=== PATIENT | female | born 1955 | race African-American/Black ===

== ENCOUNTER → 2017-10-08 | Outpatient (CLI) | payer OTHER ==
[2017-10-09 00:12] LABS: ESTRADIOL LEVEL 54.2 pg/mL (.); PROGESTERONE 5.9 ng/mL (.); TESTOSTERONE TOTAL 10 ng/dL (3-41)
[2017-10-12 04:23] LABS: ESTRONE LEVEL 186 pg/mL (.)
== END | disposition home or self-care (01) ==
LOC: LAB 15:08
DX: N95.1 Menopausal and female climacteric states (principal)
CPT/HCPCS: 36415; 82670; 82679; 84144; 84403

== ENCOUNTER → 2017-11-06 | Outpatient (CLI) | payer OTHER | END | disposition home or self-care (01) | LOC: US 14:29 | DX: D25.9 Leiomyoma of uterus, unspecified (principal); N85.2 Hypertrophy of uterus; N95.0 Postmenopausal bleeding; Z86.018 Personal history of other benign neoplasm | CPT/HCPCS: 76856 ==

== ENCOUNTER 2019-01-16 17:01 | Emergency (ER) | payer MEDICARE, OTHER ==
[~2019-01-16] VITALS: Ht 180.3 cm; Wt 70.3 kg
--- NOTE | 2019-01-16 18:36 | PHYS DOC ---
Past Medical History Past Medical History: No Pertinent History, Other Additional Past Medical Histor: heart murmer (SIERRA YOU APRN) Past Surgical History: Tonsillectomy, Other Additional Past Surgical Histo: laparoscopy (SIERRA YOU APRN) Additional Information: never smoker. Alcohol Use: Occasionally Drug Use: None (SIERRA YOU APRN) Adult General Chief Complaint Chief Complaint: LOWER EXT PAIN HPI HPI Patient is 63-year-old female who presents to the ER after being sent here by her doctor Dr. Edna Mejia for LLE pain. The injury is atraumatic. This pain started last night and the patient rates it a 4 out of 10 in severity. The pain persisted today and that is what made her see her primary care doctor. The pat ient describes the pain as aching and states that it is intermittent and tender on touch. Nothing that the patient has done has made it better or worse. The patient denies any recent long travel and the patient states that she was immobile for the weekend due to fatigue from taking care of her is in a skilled nursing with Parkinson's. The patient denies any history of blood clots or any history of any blood clotting disorders. (SIERRA YOU APRN) Review of Systems Review of Systems Constitutional: Denies fever or chills. Reports fatigue from taking care of her . Reports Night sweats that have improved since being started on a hormone pill. Eyes: Denies change in visual acuity, redness, or eye pain [] HENT: Denies nasal congestion or sore throat [] Respiratory: Denies cough or shortness of breath [] Cardiovascular: Denies Chest Pain, or palpitations. GI: Denies nausea, vomiting, or diarrhea [] : Denies dysuria or hematuria [] Musculoskeletal: Denies back pain or joint pain [] Integument: Denies rash or skin lesions [] Neurologic: Denies headache, or dizziness. [] Complete systems were reviewed and found to be within normal limits, except as documented in this note. (SIERRA YOU APRN) Family History Family History Reports family history of DVT's. (SIERRA YOU APRN) Current Medications Current Medications Reports being on an unknown hormone medication due to night sweats that was started by her PCP recently. Also on several vitamins and minerals. (SIERRA YOU APRN) Allergies Allergies Allergies Coded Allergies Type Severity Reaction Last Updated Verified No Known Drug Allergies 03/20/14 No (SIERRA VALENZUELA DO) Allergies Allergies to Aspirin and Lyrica. (SIERRA YOU APRN) Physical Exam Physical Exam Constitutional: No acute distress, non-toxic appearance. [] HENT: Normocephalic, atraumatic, oropharynx moist, no oral exudates. [] Eyes: PERRLA, conjunctiva normal, no discharge. [] Neck: No stridor, and no tenderness. [] Cardiovascular: Heart rate regular rhythm, no murmur noted on exam [] Lungs & Thorax: Bilateral breath sounds clear to auscultation [] Abdomen: No tenderness, no masses, no pulsatile masses. [] Skin: Warm, dry, no erythema, no rash. Warmness to the LLE compared to the RLE, Erythema to the LLE compared to the Right. Has a collateral superficial vein on the LLE. Extremities: Tenderness on palpation to the LLE, minor edema to the LLE compared to the right RLE. [] Neurologic: Alert and oriented X 3 [] Psychologic: Affect normal, judgement normal, mood normal. [] (SIERRA YOU APRN) Current Patient Data Vital Signs Vital Signs Date Time Temp Pulse Resp B/P (MAP) Pulse Ox O2 Delivery O2 Flow Rate FiO2 01/16/19 20:39 64 16 159/70 (99) 100 Room Air 01/16/19 17:45 98.5 98.5 (SIERRA VALENZUELA DO) EKG EKG [] (SIERRA YOU APRN) Radiology/Procedures Radiology/Procedures [] PATIENT: SINGH REY ACCOUNT: [id number] : 1955 LOCATION: ER AGE: 63 SEX: F EXAM STATUS: REG ER ORD. PHYSICIAN: SIERRA YOU APRN REASON: Acute Pain to LLE PROCEDURE: VENOUS LOWER EXTREMITY LEFT Left Lower Extremity Venous Doppler Ultrasound History: pain Comparison: None Procedure: Color flow, duplex, spectral analysis and 2D images are obtained with and without compression in the area of the common femoral vein, superficial femoral vein - femoral vein junction, main femoral vein (superficial femoral vein) and popliteal vein. Veins of the proximal calf are also imaged. Findings: There is a small segment of clot and one distal PTV. There is normal duplex flow, color flow and compressibility of all remaining visualized vein segments. Impression: Positive small DVT. Electronically signed by: Tee Falcon III, MD (01/16/2019 7:21 PM) [facility] (SIERRA YOU APRN) Course & Med Decision Making Course & Med Decision Making Pertinent Labs and Imaging studies reviewed. (See chart for details) []1800: The patient presents with acute LLE pain and swelling that is atraumatic. The patient has collateral superficial vein in the area of swelling in the LLE. The patient denies sob, palpitations, and is not tachycardic. She has a modified wells criteria score of 2 which places her at moderate risk. I s poke to the patient regarding the plan of care to get an ultrasound and rule out a DVT. The patient was agreeable to this and states that Dr. Mejia had mentioned that she needed an Ultrasound. 20:00: The patient ultrasound came back with a small DVT. Will place patient on Anticoagulant and have her follow up with Dr. Mejia (PCP). Patient is agreeable to this. Placed call to [facility], Dr. Mejia was not available but talked to his nurse who stated she would let him know and to have her follow up on Sunday. Discussed with patients risks of bleeding and to come to hospital if she falls or has increased symptoms such as SOB or chest pain. (SIERRA YOU APRN) Dragon Disclaimer Dragon Disclaimer This electronic medical record was generated, in whole or in part, using a voice recognition dictation system. (SIERRA YOU APRN) Departure Departure Impression: Primary Impression: Deep vein thrombosis (DVT) Disposition: HOME, SELF-CARE Condition: STABLE Referrals: EDNA MURRELL DO (PCP) Patient Instructions: Deep Vein Thrombosis Additional Instructions: Please take your medication and come back to ER if symptoms get worse or you develop SOB, Dizziness, or CP. Follow up with Dr. Mejia on Sunday. 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 I was available for consultation as needed at all times during the patient's visit in the emergency department. I agree with the clinical impression, plan and disposition. (SIERRA VALENZUELA DO) SIERRA YOU APRN Jan 16, 2019 18:36 SIERRA VALENZUELA DO Jan 18, 2019 21:42
--- NOTE | 2019-01-16 19:24 | RAD ---
Left Lower Extremity Venous Doppler Ultrasound History: pain Comparison: None Procedure: Color flow, duplex, spectral analysis and 2D images are obtained with and without compression in the area of the common femoral vein, superficial femoral vein - femoral vein junction, main femoral vein (superficial femoral vein) and popliteal vein. Veins of the proximal calf are also imaged. Findings: There is a small segment of clot and one distal PTV. There is normal duplex flow, color flow and compressibility of all remaining visualized vein segments. Impression: Positive small DVT. Electronically signed by: Tee Falcon III, MD (01/16/2019 7:21 PM) [facility]
[2019-01-16] MEDS ORDERED: APIX2.5T PO (20:09)
[2019-01-16 20:39] VITALS: BP 159/70
== END 2019-01-16 20:39 | disposition home or self-care (01) ==
LOC: ER 17:01
DX: I82.492 Acute embolism and thrombosis of other specified deep vein of left lower extremity (principal)
CPT/HCPCS: 93971; 99284-25

== ENCOUNTER 2019-01-18 23:45 | Emergency (ER) | payer MEDICARE, OTHER ==
[~2019-01-18] VITALS: Ht 180.3 cm; Wt 70.3 kg
[~2019-01-18 23:45] MED LIST: APIX2.5T PO
[2019-01-18 23:53] VITALS: BP 133/56
[2019-01-19 00:09] LABS: BASO # 0.1 x10^3/uL (0.0-0.2); BASO % 1 % (0-3); EOS # 0.4 x10^3/uL (0.0-0.7); EOS % 8 % (0-3); HEMATOCRIT 40.8 % (36.0-47.0); HEMOGLOBIN 13.6 g/dL (12.0-15.5); LYMPH # 1.9 x10^3/uL (1.0-4.8); LYMPH % 34 % (24-48); MEAN CORPUSCULAR HEMOGLOBIN 32 pg (25-35); MEAN CORPUSCULAR HGB CONC 33 g/dL (31-37); MEAN CORPUSCULAR VOLUME 97 fL (79-100); MONO # 0.8 x10^3/uL (0.0-1.1); MONO % 13 % (0-9); NEUT # 2.5 x10^3uL (1.8-7.7); NEUT % 44 % (31-73); PLATELET COUNT 238 x10^3/uL (140-400); RED BLOOD COUNT 4.21 x10^6/uL (3.50-5.40); RED CELL DISTRIBUTION WIDTH 13.6 % (11.5-14.5); WHITE BLOOD COUNT 5.6 x10^3/uL (4.0-11.0)
[2019-01-19] MEDS ORDERED: RIVA15TA PO (00:12)
[2019-01-19 00:19] LABS: CALCIUM 9.3 mg/dL (8.5-10.1); CREATININE 0.8 mg/dL (0.6-1.0); GFR 87.1; POTASSIUM 3.9 mmol/L (3.5-5.1)
[2019-01-19 00:27] LABS: ALBUMIN 3.7 g/dL (3.4-5.0); ALBUMIN/GLOBULIN RATIO 1.2 (1.0-1.7); TOTAL BILIRUBIN 0.2 mg/dL (0.2-1.0); TOTAL PROTEIN 6.9 g/dL (6.4-8.2)
--- NOTE | 2019-01-19 00:31 | PHYS DOC ---
Past Medical History Past Medical History: No Pertinent History, DVT, Other Additional Past Medical Histor: heart murmer Past Surgical History: Tonsillectomy, Other Additional Past Surgical Histo: laparoscopy Alcohol Use: Occasionally Drug Use: None Adult General Chief Complaint Chief Complaint: SHORTNESS OF BREATH HPI HPI Patient is a 63 year old female with history of recently diagnosed DVT currently on Xarelto who presents with intermittent shortness of breath times s everal months. Patient reports dyspnea primarily at night when lying down. Reports shortness breath on-and-off throughout today. Denies chest pain, chest tightness. No fever, cough, sore throat. Denies increased leg pain and swelling. Patient is compliant with therapy. Denies history of chronic lung disease. No history of CAD, CHF although her disease. No other acute symptoms or complaints. [] Review of Systems Review of Systems Review symptoms as per history of present illness. All other review symptoms are negative All other systems were reviewed and found to be within normal limits, except as documented in this note. Current Medications Current Medications Current Medications Medications (Trade) Dose Ordered Sig/Bryce Start Time Stop Time Status Last Admin Dose Admin Furosemide (Lasix) 20 mg DAILY 01/19/19 01:00 01/19/19 00:49 20 MG Allergies Allergies Allergies Coded Allergies Type Severity Reaction Last Updated Verified No Known Drug Allergies 03/20/14 No Physical Exam Physical Exam Constitutional: Well developed, well nourished, no acute distress, non-toxic appearance. [] HENT: Normocephalic, atraumatic, bilateral external ears normal, oropharynx moist, no oral exudates, nose normal. [] Eyes: PERRLA, EOMI, conjunctiva normal, no discharge. [] Neck: Normal range of motion. [] Cardiovascular:Heart rate regular rhythm, no murmur [] Lungs & Thorax: Respirations nonlabored, coarse rales in bilateral lung smart[] Abdomen: Bowel sounds normal, soft, no tenderness. [] Skin: Warm, dry, no erythema, no rash. [] Back: No tenderness. [] Extremities: No tenderness, left leg pain tenderness.. [] Neurologic: Alert and oriented X 3, normal motor function, normal sensory function, no focal deficits noted. [] Psychologic: Affect normal, judgement normal, mood normal. [] Current Patient Data Vital Signs Vital Signs Date Time Temp Pulse Resp B/P (MAP) Pulse Ox O2 Delivery O2 Flow Rate FiO2 01/19/19 00:33 66 114/52 (72) 100 01/18/19 23:53 98.0 20 Room Air 98.0 Lab Values Laboratory Tests Test 01/18/19 23:59 White Blood Count 5.6 x10^3/uL (4.0-11.0) Red Blood Count 4.21 x10^6/uL (3.50-5.40) Hemoglobin 13.6 g/dL (12.0-15.5) Hematocrit 40.8 % (36.0-47.0) Mean Corpuscular Volume 97 fL (79-100) Mean Corpuscular Hemoglobin 32 pg (25-35) Mean Corpuscular Hemoglobin Concent 33 g/dL (31-37) Red Cell Distribution Width 13.6 % (11.5-14.5) Platelet Count 238 x10^3/uL (140-400) Neutrophils (%) (Auto) 44 % (31-73) Lymphocytes (%) (Auto) 34 % (24-48) Monocytes (%) (Auto) 13 % (0-9) H Eosinophils (%) (Auto) 8 % (0-3) H Basophils (%) (Auto) 1 % (0-3) Neutrophils # (Auto) 2.5 x10^3uL (1.8-7.7) Lymphocytes # (Auto) 1.9 x10^3/uL (1.0-4.8) Monocytes # (Auto) 0.8 x10^3/uL (0.0-1.1) Eosinophils # (Auto) 0.4 x10^3/uL (0.0-0.7) Basophils # (Auto) 0.1 x10^3/uL (0.0-0.2) Sodium Level 137 mmol/L (136-145) Potassium Level 3.9 mmol/L (3.5-5.1) Chloride Level 100 mmol/L (98-107) Carbon Dioxide Level 27 mmol/L (21-32) Anion Gap 10 (6-14) Blood Urea Nitrogen 14 mg/dL (7-20) Creatinine 0.8 mg/dL (0.6-1.0) Estimated GFR (Cockcroft-Gault) 87.1 BUN/Creatinine Ratio 18 (6-20) Glucose Level 96 mg/dL (70-99) Calcium Level 9.3 mg/dL (8.5-10.1) Total Bilirubin 0.2 mg/dL (0.2-1.0) Aspartate Amino Transferase (AST) 14 U/L (15-37) L Alanine Aminotransferase (ALT) 20 U/L (14-59) Alkaline Phosphatase 60 U/L (46-116) Troponin I Quantitative < 0.017 ng/mL (0.000-0.055) PO-Nnq-M-Type Natriuretic Peptide 211 pg/mL (0-124) H Total Protein 6.9 g/dL (6.4-8.2) Albumin 3.7 g/dL (3.4-5.0) Albumin/Globulin Ratio 1.2 (1.0-1.7) Laboratory Tests 01/18/19 23:59 Laboratory Tests 01/18/19 23:59 EKG EKG [EKG: Normal sinus rhythm, no acute ST-T wave changes, QTC 432.] Radiology/Procedures Radiology/Procedures [Chest x-ray: Increased interstitial markings Course & Med Decision Making Course & Med Decision Making Pertinent Labs and Imaging studies reviewed. (See chart for details) [History, exam concerning for pulmonary Vascular congestion. No chest pain. Patient's not hypoxic or short of breath and seated upright. IV Lasix given with clinical improvement. Symptoms are ongoing for the past several months. Patient will prescribe short course of diuretics with PCP f/u as scheduled tomorrow. Dragon Disclaimer Dragon Disclaimer This electronic medical record was generated, in whole or in part, using a voice recognition dictation system. Departure Departure Impression: Primary Impression: Dyspnea Additional Impression: Pulmonary vascular congestion Disposition: HOME, SELF-CARE Condition: IMPROVED Referrals: EDNA MURRELL DO (PCP) Additional Instructions: You were evaluated in the emergency department for shortness of breath. EKG, lab and imaging studies were performed and are suggestive of pulmonary vascular congestion. Please decrease salt intake and limit fluids to less than 2 L daily. Take water pill for the next 2 days and follow-up with your PCP on Sunday as scheduled. In the meantime, if you develop new or worsening symptoms, return to the ED. Scripts Furosemide (LASIX) 20 Mg Tablet 1 TAB PO DAILY, #2 TAB 1 Refill Prov: ADELE ORTIZ DO 01/19/19 Problem Qualifiers ADELE ORTIZ DO Jan 19, 2019 00:31
--- NOTE | 2019-01-19 00:37 | RAD ---
Indication:SHORT OF AIR. TECHNIQUE:Portable AP chest X-ray COMPARISON:None FINDINGS: Heart is normal in size. Diffuse bilateral interstitial opacities are seen. No focal consolidation. No pneumothorax or pleural effusion. Visualized bony thorax is within normal limits. IMPRESSION: Findings of bronchitis/atypical/viral infection. Electronically signed by: Torres Arreguin DO (01/19/2019 12:34 AM) [facility]
[2019-01-19] MEDS ORDERED: FUROSEMIDE 20 MG/2 ML VIAL. IVP SCH (01:00)
[2019-01-19] MEDS ORDERED: FURO-69 PO (01:24)
--- NOTE | 2019-01-19 08:38 | EKG ---
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
== END 2019-01-19 03:33 | disposition home or self-care (01) ==
LOC: ER 23:45
DX: R06.02 Shortness of breath (principal); R09.89 Other specified symptoms and signs involving the circulatory and respiratory systems
CPT/HCPCS: 36415; 71045; 80053; 83880; 84484; 85025; 93005; 96374; 99285; J1940

== ENCOUNTER 2019-02-27 16:52 | Emergency (ER) | payer MEDICARE, OTHER ==
[~2019-02-27] VITALS: Ht 180.3 cm; Wt 70.3 kg
[~2019-02-27 16:52] MED LIST changes: +FURO-69 PO; +RIVA15TA PO
--- NOTE | 2019-02-27 17:33 | PHYS DOC ---
Past Medical History Past Medical History: No Pertinent History, DVT, Other Additional Past Medical Histor: heart murmer Past Surgical History: Tonsillectomy, Other Additional Past Surgical Histo: laparoscopy Alcohol Use: Occasionally Drug Use: None Adult General Chief Complaint Chief Complaint: LOWER EXT PAIN [facility] HPI Patient is a 63 year old who presents with left lower leg and ankle swelling. The extremity started having pain and swelling last night. The patient was seen in the ER month ago for a DVT in the leg. The patient currently takes Xarelto. Patient has been worked up for this by her primary care doctor the factor VII blood work is pending, and her S protein was low. His her pain currently 0 out of 10. Review of Systems Review of Systems Constitutional: Denies fever or chills [] Eyes: Denies change in visual acuity, redness, or eye pain [] HENT: Denies nasal congestion or sore throat [] Respiratory: Denies cough or shortness of breath [] Cardiovascular: No additional information not addressed in HPI [] GI: Denies abdominal pain, nausea, vomiting, bloody stools or diarrhea [] : Denies dysuria or hematuria [] Musculoskeletal: Denies back pain or joint pain with exception of L leg pain and edema. Integument: Denies rash or skin lesions [] Neurologic: Denies headache, focal weakness or sensory changes [] Endocrine: Denies polyuria or polydipsia [] Complete systems were reviewed and found to be within normal limits, except as documented in this note. Allergies Allergies Allergies Coded Allergies Type Severity Reaction Last Updated Verified No Known Drug Allergies 03/20/14 No Physical Exam Physical Exam Constitutional: Well developed, well nourished, no acute distress, non-toxic appearance. [] HENT: Normocephalic, atraumatic, bilateral external ears normal, oropharynx moist, no oral exudates, nose normal. [] Eyes: PERRLA, EOMI, conjunctiva normal, no discharge. [] Neck: Normal range of motion, no tenderness, supple, no stridor. [] Cardiovascular:Heart rate regular rhythm, no murmur [] Lungs & Thorax: Bilateral breath sounds clear to auscultation [] Abdomen: Bowel sounds normal, soft, no tenderness, no masses, no pulsatile masses. [] Skin: Warm, dry, no erythema, no rash. [] Back: No tenderness, no CVA tenderness. [] Extremities: No tenderness with exception of L lower extremity, no cyanosis, no clubbing, ROM intact, Edema to L lower extremity compared to R. Neurologic: Alert and oriented X 3, normal motor function, normal sensory function, no focal deficits noted. [] Psychologic: Affect normal, judgement normal, mood normal. [] Current Patient Data Vital Signs Vital Signs Date Time Temp Pulse Resp B/P (MAP) Pulse Ox O2 Delivery O2 Flow Rate FiO2 02/27/19 17:20 98.1 67 18 152/69 (96) 94 Room Air 98.1 EKG EKG [] Radiology/Procedures Radiology/Procedures []PATIENT: ROQUE REYCOUNT: [id number]#: [id number] : 1955 LOCATION: ER AGE: 63 SEX: F EXAM STATUS: REG ER ORD. PHYSICIAN: SIERRA YOU APRN REASON: pain, swelling PROCEDURE: VENOUS LOWER EXTREMITY LEFT EXAM: Left lower extremity venous Doppler sonogram. HISTORY: Pain and swelling. TECHNIQUE: James scale and color Doppler sonographic evaluation of the left lower extremity veins with spectral waveform analysis was performed. FINDINGS: There is normal color flow, normal compressibility and there are normal spectral waveforms in the common femoral, superficial femoral, popliteal, posterior tibial and greater saphenous veins. IMPRESSION: No Doppler evidence of lower extremity deep venous thrombosis. Electronically signed by: Dena Madrigal MD (02/27/2019 6:48 PM) [facility] Course & Med Decision Making Course & Med Decision Making Pertinent Labs and Imaging studies reviewed. (See chart for details) Patient wants an ultrasound of L lower extremity. Will get imaging. Dragon Disclaimer Dragon Disclaimer This electronic medical record was generated, in whole or in part, using a voice recognition dictation system. Departure Departure Impression: Primary Impression: Leg pain Disposition: 01 HOME, SELF-CARE Condition: STABLE Referrals: EDNA MURRELL DO (PCP) Additional Instructions: Follow up with your primary care doctor. Return to ED as needed. Problem Qualifiers Primary Impression: Leg pain Laterality: left Qualified Codes: M79.605 - Pain in left leg SIERRA YOU APRN Feb 27, 2019 17:33
[2019-02-27 18:51] VITALS: BP 113/56
--- NOTE | 2019-02-27 18:51 | RAD ---
EXAM: Left lower extremity venous Doppler sonogram. HISTORY: Pain and swelling. TECHNIQUE: James scale and color Doppler sonographic evaluation of the left lower extremity veins with spectral waveform analysis was performed. FINDINGS: There is normal color flow, normal compressibility and there are normal spectral waveforms in the common femoral, superficial femoral, popliteal, posterior tibial and greater saphenous veins. IMPRESSION: No Doppler evidence of lower extremity deep venous thrombosis. Electronically signed by: Dena Madrigal MD (02/27/2019 6:48 PM) [facility]
== END 2019-02-27 19:05 | disposition home or self-care (01) ==
LOC: ER 16:52
DX: M79.605 Pain in left leg (principal); R60.0 Localized edema; Z86.718 Personal history of other venous thrombosis and embolism
CPT/HCPCS: 93971; 99284-25

== ENCOUNTER → 2019-03-14 | Outpatient (CLI) | payer MEDICARE, OTHER ==
[2019-02-27 18:51] VITALS: BP 113/56
[~2019-03-14] MED LIST changes: +REGADENOSON 0.4 MG/5 ML DISP.SYRIN. IV ONE
--- NOTE | 2019-03-14 12:50 | RAD ---
MR#: [id number] Date of Study: 03/14/2019 Ordering Physician: LINDA LOCKHART, Referring Physician: MARTHA KNUTSON Tech: MINI Bob, ARRT (R) (N) APPROVED REPORT Test Type: Pharmacological Stress Nurse/Tech: Lauren Galvin R.N. Test Indications: SOB Cardiac History: DVT Medications: Zocor Medical History: See Electronic Medical Record Resting ECG: s hany Resting Heart Rate: 56 bpm Resting Blood Pressure: 121/52mmHg Pretest Chest Pain: No chest pain Nurse/Tech Notes S1S2. lungs sound clear Consent: The procedure was explained to the patient in lay terms. Informed consent was witnessed. Hero eout was entered into Biletu. History and Stress Test performed by Lauren Galvin R.N. Pharm. Details Pharmacologic stress testing was performed using 0.4mg per 5ml of regadenoson given intravenously ove r 7-10 seconds. Stress Symptoms DizzinessDyspnea POST EXERCISE Reason for Termination: Infusion complete Target HR: 130 Max HR: 109 bpm Max Blood Pressure: 108/42mmHg Blood Pressure response to exercise: Normal blood pressure response during stress. Chest Pain: No. Arrhythmia: No. ST Change: No. INTERPRETATION Stress EKG Conclusion: Baseline EKG showed sinus rhythm. No ischemic changes at peak stress. No arr hythmias. Imaging Protocol IMAGE PROTOCOL: Rest Tc-99m/stress Tc-99m 1 day Rest: Stress: Viability: Radiopharm.Tc99m AcfjlfsmpFo28t Sestamibi Dose10.8mCi 32.3mCi Img Date 03/14/2019 03/14/2019 Inj-Img [id number]. 60min. Rest Admin Site:IV - Right AntecubitalAdministrator:RT Hitesh (R)(N) Stress Admin Site: IV - Right AntecubitalAdministrator: RT Hitesh (R)(N) STRESS DATA End Diast. Vol.63.0mlLVEDV index BSA33.0ml End Syst. Vol.4.0mlLVESV index BSA2.0ml Myocardial Clfn982.0gEject. Itmedxfz91.0% Stress Scores Regional WT0.00Summed WT0.00 Regional WM0.00Summed WM0.00 Study quality was good. Left Ventricular size was Normal at Rest and Stress. Lung uptake was . Left Ventricular ejection fraction is >80%. The rest and stress images show normal perfusion, normal contraction and thickening. LV Perf. Quant 17 Seg. SSS0.00 17 Seg. SRS0.00 17 Seg. SDS0.00 Stress Defect Extent (% LAD)0.00Rest Defect Extent (% LAD)0.00Rev. Defect Extent (% LAD)0.00 Stress Defect Extent (% LCX) 0.00Rest Defect Extent (% LCX)0.00Rev. Defect Extent (% LCX)0.00 Stress Defect Extent (% RCA)0.00Rest Defect Extent (% RCA)0.00Rev. Defect Extent (% RCA)0.00 Stress Defect Extent (% STANTON)0.00Rest Defect Extent (% STANTON)0.00Rev. Defect Extent (% STANTON)0.00 Conclusion 1. Regadenoson cardioisotope stress test did not show any evidence of ischemia or infarct. 2. Normal left ventricular systolic function with ejection fraction calculated at >80%. 3. Low risk for cardiac events. Signed by : Linda Lockhart, Electronically Approved : 03/14/2019 12:49:56
== END | disposition home or self-care (01) ==
LOC: NM 08:13
PROVIDERS: ATTEND Internal Medicine Cardiovascular Disease
DX: I50.32 Chronic diastolic (congestive) heart failure (principal); I25.10 Atherosclerotic heart disease of native coronary artery without angina pectoris; Z79.01 Long term (current) use of anticoagulants
CPT/HCPCS: 78452; 93017; A9500; J2785

== ENCOUNTER → 2019-04-14 | Outpatient (CLI) | payer MEDICARE, OTHER ==
[~2019-04-14] MED LIST changes: -REGADENOSON 0.4 MG/5 ML DISP.SYRIN. IV ONE
--- NOTE | 2019-04-14 12:47 | RAD ---
MR#: [id number] Date of Study: 04/14/2019 Ordering Physician: LINDA LOCKHART, Referring Physician: LINDA LOCKHART, Tech: CARMEN Biggs, RDMS, RTR APPROVED REPORT Patient Location : OUT-PATIENT Indications Lower Extremity Edema : History of DVT Past History Compression Stockings : Yes Medications xerelto Findings Grayscale images of the bilateral greater and lesser saphenous veins do not show any obvious evidence of thrombus. The right great saphenous vein measures 5.6 mm and the left great saphenous vein measures 9.2 mm and these veins do not show any obvious evidence of reflux. The bilateral lesser saphenous veins also do not show any evidence of reflux. Critical Notification Critical Value: No <Conclusion> No significant reflux in the bilateral greater and lesser saphenous veins Signed by : Moises Hensley, Electronically Approved : 04/14/2019 12:46:36
--- NOTE | 2019-04-14 16:33 | CARD ---
MR#: [id number] Date of Study: 04/14/2019 Ordering Physician: LINDA LOCKHART, Referring Physician: LINDA LOCKHART, Tech: Margy Valdivia APPROVED REPORT EXAM: Two-dimensional and M-mode echocardiogram with Doppler and color Doppler. Other Information Quality : GoodHR: 59bpm Rhythm : NSR INDICATION Dyspnea Congestive Heart Failure 2D DIMENSIONS RVDd3.0 (2.9-3.5cm)Left Atrium(2D)2.9 (1.6-4.0cm) IVSd0.7 (0.7-1.1cm)Aortic Root(2D)2.7 (2.0-3.7cm) LVDd4.3 (3.9-5.9cm)LVOT Diameter1.9 (1.8-2.4cm) PWd0.8 (0.7-1.1cm)LVDs2.5 (2.5-4.0cm) FS (%) 42.8 %SV62.0 ml Aortic Valve AoV Peak Wyatt.149.4cm/sAoV VTI33.7cm AO Peak GR.8.9mmHgLVOT Peak Wyatt.131.0cm/s LVOT VTI 31.01cmAO Mean GR.5mmHg JESU (VMAX)1.91xb2DDV (VTI)2.51cm2 Mitral Valve MV E Dmszzjft79.8cm/sMV DECEL CCTG500ch MV A Omkwhyjl53.4cm/sMV PVM29uu E/A Ratio1.3MVA (PHT)3.43cm2 TDI E/Lateral E'6.5E/Medial E'7.9 Pulmonary Valve PV Peak Vkmcxyqq84.3cm/sPV Peak Grad.4mmHg Tricuspid Valve TR P. Wcywvnvn410cm/sRAP [id number] TR Peak Gr.53kdImNLTK11jeJk Pulmonary Vein S1 Zomdvifn90.1cm/sD2 Kgbjltby34.6cm/s PVa isvfhbtk723toxf LEFT VENTRICLE The left ventricle is normal size. There is borderline concentric left ventricular hypertrophy. The l eft ventricular systolic function is normal and the ejection fraction is within normal range. The Eje ction Fraction is 60-65%. There is normal LV segmental wall motion. The left ventricular diastolic fu nction and filling is normal for age. RIGHT VENTRICLE The right ventricle is normal size. There is normal right ventricular wall thickness. The right ventr icular systolic function is normal. ATRIA The left atrium size is normal. The right atrium size is normal. The interatrial septum is intact wit h no evidence for an atrial septal defect or patent foramen ovale as noted on 2-D or Doppler imaging. AORTIC VALVE The aortic valve is thickened but opens well. Doppler and Color Flow revealed no significant aortic r egurgitation. There is no significant aortic valvular stenosis. MITRAL VALVE The mitral valve is thickened but opens well. There is no evidence of mitral valve prolapse. There is no mitral valve stenosis. Doppler and Color-flow revealed trace mitral regurgitation. TRICUSPID VALVE The tricuspid valve is normal in structure and function. Doppler and Color Flow revealed mild tricusp id regurgitation with an estimated PAP of 36 mmHg. There is no tricuspid valve stenosis. PULMONIC VALVE The pulmonic valve is not well visualized. Doppler and Color Flow revealed no pulmonic valvular regur gitation. GREAT VESSELS The aortic root is normal in size. The IVC is dilated and collapses <50% with inspiration. PERICARDIAL EFFUSION There is no evidence of significant pericardial effusion. Critical Notification Critical Value: No <Conclusion> The left ventricle is normal size. The left ventricular systolic function is normal and the ejection fraction is within normal range. The Ejection Fraction is 60-65%. There is borderline concentric left ventricular hypertrophy. There is no significant aortic valvular stenosis. Doppler and Color Flow revealed no significant aortic regurgitation. Doppler and Color-flow revealed trace mitral regurgitation. Doppler and Color Flow revealed mild tricuspid regurgitation with an estimated PAP of 36 mmHg. Signed by : Hong Bill MD Electronically Approved : 04/14/2019 16:32:18
== END | disposition home or self-care (01) ==
LOC: US 09:23
PROVIDERS: ATTEND Internal Medicine Cardiovascular Disease
DX: I07.1 Rheumatic tricuspid insufficiency (principal); I50.32 Chronic diastolic (congestive) heart failure
CPT/HCPCS: 93306; 93970

== ENCOUNTER → 2019-07-03 | Outpatient (CLI) | payer MEDICARE, OTHER ==
--- NOTE | 2019-07-03 14:14 | RAD ---
EXAM: Left lower extremity venous Doppler sonogram. HISTORY: Pain and swelling. TECHNIQUE: James scale and color Doppler sonographic evaluation of the left lower extremity veins with spectral waveform analysis was performed. FINDINGS: There is normal color flow, normal compressibility and there are normal spectral waveforms in the common femoral, superficial femoral, popliteal, posterior tibial and greater saphenous veins. IMPRESSION: No Doppler evidence of lower extremity deep venous thrombosis. Electronically signed by: Dena Madrigal MD (07/03/2019 2:11 PM) [place] [id number]
== END | disposition home or self-care (01) ==
LOC: US 13:31
PROVIDERS: ATTEND General Practice
DX: R60.0 Localized edema (principal); Z86.718 Personal history of other venous thrombosis and embolism
CPT/HCPCS: 93971

== ENCOUNTER → 2021-04-21 | Outpatient (CLI) | payer MEDICARE, OTHER ==
--- NOTE | 2021-04-21 17:37 | CARD ---
MR#: [id number] Date of Study: 04/21/2021 Ordering Physician: LINDA LOCKHART, Referring Physician: Alexandro KNUTSON: Tee Partida [facility] APPROVED REPORT EXAM: Two-dimensional and M-mode echocardiogram with Doppler and color Doppler. Other Information Quality : AverageGoodHR: 60bpm Rhythm : NSR INDICATION Congestive Heart Failure 2D DIMENSIONS Left Atrium(2D)3.2 (1.6-4.0cm)IVSd0.7 (0.7-1.1cm) Aortic Root(2D)3.0 (2.0-3.7cm)LVDd3.9 (3.9-5.9cm) LVOT Diameter1.7 (1.8-2.4cm)PWd0.7 (0.7-1.1cm) LVDs2.3 (2.5-4.0cm)FS (%) 40.1 % SV46.0 ml Aortic Valve AoV Peak Wyatt.143.1cm/sAoV VTI34.9cm AO Peak GR.8.2mmHgLVOT Peak Wyatt.124.5cm/s AO Mean GR.4mmHgAVA (VMAX)1.95cm2 Mitral Valve MV E Ncucyuvd848.6cm/sMV E Peak Gr.4mmHg MV DECEL [id number] A Xmruvvav43.2cm/s MV E Mean Gr.1mmHgE/A Ratio1.2 Pulmonary Valve PV Peak Mkvrjsvh05.2cm/s Tricuspid Valve TR P. Zmvjgkvi536dc/sTR Peak Gr.23mmHg Pulmonary Vein S1 Xlgivvqs35.2cm/sD2 Ruptyxvx46.2cm/s LEFT VENTRICLE The left ventricle is normal size. There is normal left ventricular wall thickness. The left ventricu lar systolic function is normal and the ejection fraction is within normal range. Left ventricular ej ection fraction is 55 to 60%. There is normal LV segmental wall motion. The left ventricular diastoli c function and filling is normal for age. No left ventricle thrombus noted on this study. There is no ventricular septal defect visualized. There is no left ventricular aneurysm. There is no mass noted in the left ventricle. RIGHT VENTRICLE The right ventricle is normal size. There is normal right ventricular wall thickness. The right ventr icular systolic function is normal. ATRIA The left atrium size is normal. The right atrium size is normal. AORTIC VALVE The aortic valve is normal in structure and function. Doppler and Color Flow revealed no significant aortic regurgitation. There is no significant aortic valvular stenosis. There is no aortic valvular v egetation. MITRAL VALVE The mitral valve is normal in structure and function. There is no evidence of mitral valve prolapse. There is no mitral valve stenosis. Doppler and Color-flow revealed trace to mild mitral regurgitation . TRICUSPID VALVE The tricuspid valve is normal in structure and function. Doppler and Color Flow revealed mild tricusp id regurgitation. There is no tricuspid valve prolapse or vegetation. There is no tricuspid valve lizz nosis. PULMONIC VALVE The pulmonary valve is normal in structure and function. Doppler and Color Flow revealed no pulmonic valvular regurgitation. There is no pulmonic valvular stenosis. GREAT VESSELS The aortic root is normal in size. The ascending aorta is normal in size. The pulmonary artery is nor mal. The IVC is mildly enlarged but collapeses normal with inspiration. PERICARDIAL EFFUSION There is no pleural effusion. There is no evidence of significant pericardial effusion. Critical Notification Critical Value: No <Conclusion> The left ventricle is normal size. The left ventricular systolic function is normal and the ejection fraction is within normal range. Left ventricular ejection fraction is 55 to 60%. Doppler and Color Flow revealed no significant aortic regurgitation. There is no significant aortic valvular stenosis. Doppler and Color-flow revealed trace to mild mitral regurgitation. Doppler and Color Flow revealed mild tricuspid regurgitation. Signed by : Hong Bill MD Electronically Approved : 04/21/2021 17:36:55
== END ==
LOC: ECHO 11:03
PROVIDERS: ATTEND Internal Medicine Cardiovascular Disease
DX: I08.1 Rheumatic disorders of both mitral and tricuspid valves (principal); I50.32 Chronic diastolic (congestive) heart failure
CPT/HCPCS: 93306